=== PATIENT | female | born 1965 | race Caucasian/White ===

== ENCOUNTER → 2019-08-18 10:14 | Outpatient (BNVA) | payer OTHER, SELFPAY | PROVIDERS: Family Provider Family Medicine; PCP Family Medicine; Visit Provider Family Medicine | DX: I10 Essential (primary) hypertension (principal); M25.50 Pain in unspecified joint; M25.562 Pain in left knee; E89.40 Asymptomatic postprocedural ovarian failure | CPT/HCPCS: 80053; 85651; 86140 ==

== ENCOUNTER → 2019-12-28 09:18 | Outpatient (BNVA) | payer OTHER, SELFPAY | PROVIDERS: Family Provider Family Medicine; PCP Family Medicine; Visit Provider Family Medicine | DX: Z11.59 Encounter for screening for other viral diseases (principal); R68.89 Other general symptoms and signs | CPT/HCPCS: 87400; 87635 ==

== ENCOUNTER 2020-04-26 09:27 | Outpatient (CLI) | payer OTHER, SELFPAY ==
--- NOTE | 2020-04-26 10:00 | MM_ITS ---
WS: [id number] Bilateral screening digital mammogram, 04/26/2020 Clinical Data: screening for breast cancer Comparison: 01/02/2018, 05/13/2016, 03/17/2015, 12/31/2013, 08/18/2012, 12/07/2010, 10/13/2009, 06/01/2008, 05/17/2008. Findings: The breast parenchymal pattern shows fat replacement. No spiculated masses or clustered calcification s are seen. There are no secondary signs of carcinoma. There is a mole marker on the right breast. MM/[id number] Impression: 1. Negative bilateral mammogram unchanged. 2. Recommend annual screening mammograms. BIRADS: 1-Negative FOLLOW UP: 1 Year Follow-up The CAD decoration checker was used.
== END 2020-04-26 09:28 | disposition home or self-care (01) ==
LOC: RADSHAW 09:29
PROVIDERS: PCP Family Medicine; Visit Provider Family Medicine
DX: Z12.31 Encounter for screening mammogram for malignant neoplasm of breast (principal)
CPT/HCPCS: 77067

== ENCOUNTER → 2020-06-04 10:20 | Outpatient (BNVA) | payer OTHER, SELFPAY | PROVIDERS: PCP Family Medicine; Visit Provider Nurse Practitioner Family | DX: Z20.828 Contact with and (suspected) exposure to other viral communicable diseases (principal); J40 Bronchitis, not specified as acute or chronic; J11.1 Influenza due to unidentified influenza virus with other respiratory manifestations | CPT/HCPCS: 87635 ==

== ENCOUNTER 2022-01-21 07:40 | Outpatient (CLI) | payer OTHER, SELFPAY ==
--- NOTE | 2022-01-21 07:56 | MM_ITS ---
WS: [id number] SCREENING DIGITAL BREAST TOMOSYNTHESIS MAMMOGRAM WITH CAD HISTORY: Z12.39 - Encounter for other screening for malignant neoplasm... COMPARISON: 04/26/2020 and 01/02/2018 Bilateral CC and MLO with tomosynthesis views submitted. Synthetic mammography reviewed. Computer aid ed detection analyzed. Breast composition: There are scattered areas of fibroglandular density. No suspicious masses, microc alcifications or architectural distortion. MM/[id number] IMPRESSION: BI-RADS: 1-Negative FOLLOW UP: 1 Year Follow-up
== END 2022-01-21 07:41 | disposition home or self-care (01) ==
PROVIDERS: PCP Family Medicine; Visit Provider Family Medicine
DX: Z12.31 Encounter for screening mammogram for malignant neoplasm of breast (principal)
CPT/HCPCS: 77063; 77067

== ENCOUNTER → 2022-07-01 14:44 | Outpatient (BNVA) | payer OTHER, SELFPAY | PROVIDERS: PCP Family Medicine; Visit Provider Family Medicine | DX: M25.541 Pain in joints of right hand (principal) | CPT/HCPCS: 73130 ==

== ENCOUNTER → 2022-09-18 09:20 | Outpatient (BNVA) | payer OTHER, SELFPAY | PROVIDERS: PCP Family Medicine; Visit Provider Family Medicine | DX: I10 Essential (primary) hypertension (principal); G47.01 Insomnia due to medical condition; R68.89 Other general symptoms and signs; J45.901 Unspecified asthma with (acute) exacerbation; R53.83 Other fatigue | CPT/HCPCS: 80053; 82607; 84443; 85025; 87400; 87426 ==

== ENCOUNTER 2023-02-14 10:19 | Outpatient (CLI) | payer OTHER, SELFPAY ==
--- NOTE | 2023-02-14 10:35 | MM_ITS ---
WS: [id number] BILATERAL SCREENING DIGITAL TOMOSYNTHESIS MAMMOGRAM WITH CAD HISTORY: Z12.39 - Encounter for other screening for malignant neop... COMPARISON: 01/21/2022, 05/26/2000 Bilateral CC and MLO views with tomosynthesis and synthetic mammography submitted. Computer aided det ection analyzed. Breast composition: There are scattered areas of fibroglandular density. No suspicious masses, microc alcifications or architectural distortion. IMPRESSION: MM/[id number] BI-RADS: 1-Negative FOLLOW UP: 1 Year Follow-up
== END 2023-02-14 10:20 | disposition home or self-care (01) ==
LOC: RAD 10:25 → MOBLMAM 10:34
PROVIDERS: PCP Family Medicine; Visit Provider Family Medicine
DX: Z12.31 Encounter for screening mammogram for malignant neoplasm of breast (principal)
CPT/HCPCS: 77063; 77067

== ENCOUNTER → 2023-10-24 09:51 | Outpatient (BNVA) | payer OTHER, SELFPAY | PROVIDERS: PCP Family Medicine; Visit Provider Physician Assistant | DX: M65.331 Trigger finger, right middle finger (principal) | CPT/HCPCS: 73130 ==

== ENCOUNTER 2023-11-26 05:28 | Day surgery (SDC) | payer OTHER, SELFPAY ==
[2023-11-26] VITALS (7 sets, daily range): BP systolic 99–161; BP diastolic 67–102; PULSE 54–66; RESP 10–17; TEMP 36.2–36.6; O2SAT 92–94; BMI 38.0
[2023-11-26] MEDS: acetaminophen 1,000 MG/100 ML PIGGYBACK 400 MG IV (06:13)
[2023-11-26] MEDS: sodium chloride 0.9% 1,000 ML 30 ML IV (06:13)
[2023-11-26] MEDS: scopolamine 1.5 Patch 1 PATCH TRANSDERMA (06:14)
[2023-11-26] MEDS: ketorolac 30 mg/mL INJ IVP (06:14)
--- NOTE | 2023-11-26 06:47 | P.ANESASSM_ITS ---
Pre-Anesthetic Assessment Height/Weight: Height 1.75 m Weight 117.027 kg Temp Pulse Resp BP Pulse Ox O2 Del Method 97.2 F L 59 L 17 148/102 94 Room Air 11/26/23 06:03 11/26/23 06:03 11/26/23 06:03 11/26/23 06:03 11/26/23 06:03 11/26/23 06:04 Operation Date: 11/26/23 07:00 Proposed Procedures p Trigger Finger Release /Right middle finger trigger release(Right) - Gee Calaveras, DO Familial anesthetic complications: None Was Beta Gautam taken within 24 hours: Yes Was Clonidine taken within 24 hours: N/A Last intake: Intake Last Liquid Date 11/25/23 Last Liquid Time 21:00 Last Solid Date 11/25/23 Last Solid Time 18:30 Social No alcohol and No tobacco Exam alert, oriented x 3, clear to auscultation bilaterally and regular rate & rhythm Airway Mallampati: Class I Dentition: full CV/HEM Hypertension Musc/skel Fibromyalgia Anesthetic Plan ASA status: 2 Anesthesia: MAC Risk of > 500 ml blood loss (7ml/kg in children): No Medications/Allergies Home Medications Medication Instructions Recorded Confirmed Last Taken Type rizatriptan 10 mg disintegrating 10 mg PO Q2H PRN migraine headache 10/17/21 11/25/23 Unknown Rx tablet (Maxalt-ASSISTANT PRESS OPERATOR) #10 tabs losartan 50 mg tablet 50 mg PO DAILY 90 days #90 tabs 03/13/23 11/25/23 11/25/23 Rx metoprolol tartrate 25 mg tablet 37.5 mg (1.5 x 25 mg) PO BID 90 03/13/23 11/26/23 11/26/23 04:00 Rx days #270 tabs conjugated estrogens 0.9 mg tablet 0.9 mg PO DAILY 90 days #90 tabs 09/10/23 11/25/23 11/25/23 Rx (Premarin) celecoxib 200 mg capsule 200 mg PO DAILY 11/25/23 11/25/23 11/20/23 History Allergies Allergy/AdvReac Type Severity Reaction Status Date / Time No Known Allergies Allergy Verified 11/26/23 06:00 Current Medications Generic Name Dose Route Start Last Admin Trade Name Freq PRN Reason Stop Dose Admin Sodium Chloride 1,000 mls @ 30 mls/hr 11/26/23 06:00 11/26/23 06:13 Sodium Chloride 0.9% IV 11/27/23 05:59 30 mls/hr .Q24H RADHA Administration PFSH Anesthesia Medical History Insomnia Surgical menopause on hormone replacement therapy Hypertension Surgical History History of brain surgery x3. For hemifacial spasms History of left knee surgery History of hysterectomy Family History Other Diabetes Hypertension Social History Smoking and tobacco/nicotine status: never used tobacco/nicotine Alcohol intake: current Alcohol intake frequency: holidays/special occasions only Substance/Drug Use: never Do you think of yourself as: Straight/Heterosexual Female Reproductive History Para: 2 Spontaneous abortions: No Data Anesthesia Cardiac Studies: No Data to Display
--- NOTE | 2023-11-26 06:55 | P.HP_ITS ---
Same Day Surgery H&P Indication for Procedure/HPI DATE OF PROCEDURE: November 26, 2023 CHIEF COMPLAINT/INDICATIONFOR SURGICAL PROCEDURE: Right middle finger trigger PREOP DIAGNOSIS: Right middle finger trigger PLANNED PROCEDURE: Operation Date: 11/26/23 07:00 Proposed Procedures p Trigger Finger Release /Right middle finger trigger release(Right) - Gee Leonard DO Medications/Allergies* Home Medications Medication Instructions Recorded Confirmed Type celecoxib 200 mg capsule 200 mg PO DAILY 11/25/23 11/25/23 History Allergies/Adverse Reactions Allergy/AdvReac Type Severity Reaction Status Date / Time No Known Allergies Allergy Verified 11/26/23 06:00 Current Medications: Generic Name Dose Route Start Last Admin Trade Name Freq PRN Reason Stop Dose Admin Sodium Chloride 1,000 mls @ 30 mls/hr 11/26/23 06:00 11/26/23 06:13 Sodium Chloride 0.9% IV 11/27/23 05:59 30 mls/hr .Q24H RADHA Administration Pertinent History/Comorbid Conditions* Medical History (Updated 10/24/23 @ 10:43 by KELLE Almonte) Insomnia Surgical menopause on hormone replacement therapy Hypertension Surgical History (Updated 08/18/19 @ 09:16 by Renae Ramirez MD) History of brain surgery x3. For hemifacial spasms History of left knee surgery History of hysterectomy Family History (Updated 07/07/19 @ 11:29 by Hallie Lee LPN) Diabetes Hypertension Social History Smoking and tobacco/nicotine status: never used tobacco/nicotine Alcohol intake: current Alcohol intake frequency: holidays/special occasions only Substance/Drug Use: never Do you think of yourself as: Straight/Heterosexual Pertinent Exam Findings alert, oriented x 3, operative site marked and procedure specific exam findings Please refer to detailed orthopedic examination on 10/29/2023: Right hand-full range of motion of the wrist and fingers. Fingers are warm and well-perfused. Patient does have tenderness at A1 garima of middle finger. She has mechanical locking and catching of her finger as well with range of motion. Recommendations Surgery/Procedure today Other Plans: Proceed to the OR today for right middle finger trigger release. Patient understands ends and outs procedure and postoperative course understands the risk benefits complication alternatives of surgery and through shared decision- making elects proceed with surgical intervention. All questions answered. Coding Level of Care Code Acute Code for Chg Fwd
[2023-11-26] MEDS: ceFAZolin 2,000 MG in sodium chloride 0.9% (plus) 50 ML 100 MG IV (06:58)
[2023-11-26] MEDS: BUPivacaine 0.5% INJ 10 mL INJECTION (07:22)
[2023-11-26] MEDS: ROPivacaine 0.5% SDV 30 mL 150 MG INJECTION (07:22)
--- NOTE | 2023-11-26 07:42 | PM.OP ---
Operative Report Date of procedure: November 26, 2023 Surgeon: Gee Leonard DO Manager Organizational: Aki Leonard PA-C: PA was necessary for assistance in this case with hand positioning to execute the procedure, retraction and protection of neurovascular structures as well as to assist with wound closure and dressing application. Procedure: Preoperative diagnosis: Right middle finger trigger post-op diagnosis: Same Procedure done: Right middle finger?trigger?release Surgeon: Gee Leonard DO Estimated blood loss: 2cc Tourniquet time 7mins Complications: None Condition: stable Disposition: same day Brief History: Patient's been seen and worked up in the outpatient setting and findings consistent with preoperative diagnosis of right middle finger?trigger.? Patient has failed conservative treatment.? Continues to have mechanical locking and catching.? Severe pain as well.? We talked about treatment options nonoperative versus operative intervention.? ?Patient understands the risk benefits complication alternatives of surgical nonsurgical treatment options.? Understanding his risks with surgery he elects proceed with surgical intervention.? Consent obtained in the office.? Here today to proceed with surgical intervention.? All questions answered. Procedure: Patient was seen and evaluated in the preoperative holding area.? Consent was?reviewed and signed with patient.? Seen evaluated by Anesthesia Department.? Once cleared for surgery was brought back to the operative suite.? Placed in supine position on the OR table all bony prominences well-padded patient properly secured to the bed.? Patient's right arm was then placed to the armboard.? A nonsterile tourniquet applied to the right upper arm.? Patient's right upper extremity was then prepped and draped in standard orthopedic fashion.? Final timeout performed.? Patient?received appropriate preoperative antibiotics. Esmarch tourniquet was used exsanguinate the right upper extremity tourniquet insufflated to 250 mmHg. Under sterile aseptic technique local digital block was performed to the right middle finger.? Once appropriately anesthetized a standard oblique incision was made centering over the A1 garima following patient's flexor crease.? Sharp scalpel incision was made only through skin and then switched to Littler dissection scissors and spread longitudinally directly over the flexor tendon sheath.? I then mobilized both radially and ulnarly and Kasdan?retractors were used and placed by my assistant infant toddler teacher to protect neurovascular bundle.? Next I visualized the A1 garima and this was incised with a scalpel.? I then switched to dissection scissors and?released the A1 garima both proximally as well as distally to its entirety.? Significant tendon sheath fluid was noted consistent with inflammation.? Mild fraying of the flexor tendons noted but no tear.? At this point I utilized a rag nail and pulled the tendons FDS and FDP out of the incision and no?triggering was noted.? I then had anesthesia wake up the patient and patient was able to actively flex and extend with no?triggering.? This point thorough irrigation was performed.? Tourniquet deflated hemostasis satisfactory with bipolar.? I then subsequently closed the incision with interrupted nylon suture.? Xeroform 4 x 4's, Kerlix and an Roque wrap was applied for a bulky soft dressing.? Patient was then subsequently awakened from anesthesia and taken to PACU in stable condition tolerated procedure without issues. Disposition: Patient taken back in stable condition?recovering well.? Patient will?receive appropriate discharge instruction as well as pain medication postoperatively.? Patient to follow-up with me in the office in 2 weeks for?repeat evaluation and incision check.? Patient understands that any questions or concerns and contact the office.? All questions answered.
--- NOTE | 2023-11-26 07:53 | P.BOP_ITS ---
Date of Procedure: [November 26, 2023] Surgeon: [Dr. Aisha DO] Child Care Attendant(s): [Aki Leonard PA-C] Procedure(s) performed: [Right middle trigger finger release] Findings of the procedure(s): [Right middle trigger finger] Estimated blood loss: [2 mL] Specimen(s) removed: [n/a] Post-operative diagnosis: [Right middle trigger finger]
--- NOTE | 2023-11-26 07:59 | PM.PACU ---
PACU note Narrative: Patient is a 58-year-old female that just underwent a right middle finger trigger release. Patient transferred to PACU in stable condition. Pain is well controlled. Dressing on hand is dry and in place. Patient's fingers are warm and well-perfused. Patient can wiggle fingers. normal cap refill under 2 seconds. Patient has normal elbow range of motion. Unable to assess sensation due to residual localized anesthetic. Exam: awake Disposition: discharged
--- NOTE | 2023-11-26 08:40 | ANE.PACU2 ---
Inpatient post-anesthesia follow up: Airway intact: Yes Vital signs: Temperature 97.4 F Pulse Rate 54 Respiratory Rate 17 Blood Pressure 122/71 Pulse Oximetry 94 Oxygen Delivery Me thod Room Air Oxygen Flow Rate Fraction of Inspir ed Oxygen Hydration adequate: Yes Nausea and vomiting: No Pain level: 1 Mental status: Baseline
== END 2023-11-26 08:44 | disposition home or self-care (01) ==
PROVIDERS: PCP Family Medicine; Visit Provider Student in an Organized Health Care Education/Training Program
PROC: (CPT 26055; principal; 2023-11-26 07:00)
DX: M65.331 Trigger finger, right middle finger (principal); I10 Essential (primary) hypertension; M79.7 Fibromyalgia
CPT/HCPCS: 26055; J0131; J0690; J1885; J2704; J2795; J3490; J7030

== ENCOUNTER 2024-04-29 09:55 | Outpatient (CLI) | payer OTHER, SELFPAY ==
--- NOTE | 2024-04-29 10:00 | MM_ITS ---
WS: [id number] BILATERAL SCREENING DIGITAL TOMOSYNTHESIS MAMMOGRAM WITH CAD HISTORY: Z12.39 - Encounter for other screening for malignant neop... COMPARISON: 02/14/2023, 01/21/2022 Bilateral CC and MLO views with tomosynthesis and synthetic mammography submitted. Computer aided det ection analyzed. Breast composition: The breasts are almost entirely fatty. No suspicious masses, microcalcifications or architectural distortion. MM/MM scr BI tomosynthesis [id number] IMPRESSION: BI-RADS: 1 - Negative. FOLLOW UP: 1 Year Follow-up
== END 2024-04-29 09:56 | disposition home or self-care (01) ==
LOC: MOBLMAM 09:56
PROVIDERS: PCP Family Medicine; Visit Provider Family Medicine
DX: Z12.31 Encounter for screening mammogram for malignant neoplasm of breast (principal); R92.313 Mammographic fatty tissue density, bilateral breasts
CPT/HCPCS: 77063; 77067

== ENCOUNTER → 2024-06-02 11:49 | Outpatient (BNVA) | payer SELFPAY | PROVIDERS: PCP Family Medicine; Visit Provider Family Medicine | DX: S92.424A Nondisplaced fracture of distal phalanx of right great toe, initial encounter for closed fracture (principal); X58.XXXA Exposure to other specified factors, initial encounter | CPT/HCPCS: 73630 ==

== ENCOUNTER → 2024-06-24 10:14 | Outpatient (BNVA) | payer OTHER, SELFPAY | PROVIDERS: PCP Family Medicine; Referring Provider Family Medicine; Visit Provider Family Medicine | DX: S92.424A Nondisplaced fracture of distal phalanx of right great toe, initial encounter for closed fracture (principal); X58.XXXA Exposure to other specified factors, initial encounter | CPT/HCPCS: 73630 ==

== ENCOUNTER → 2024-12-08 08:42 | Outpatient (BNVA) | payer OTHER, SELFPAY | PROVIDERS: PCP Family Medicine; Visit Provider Nurse Practitioner | DX: R50.9 Fever, unspecified (principal) | CPT/HCPCS: 80053; 85025 ==

== ENCOUNTER 2025-05-26 11:17 | Outpatient (CLI) | payer OTHER, SELFPAY ==
--- NOTE | 2025-05-26 11:20 | MM_ITS ---
WS: [id number] BILATERAL SCREENING DIGITAL TOMOSYNTHESIS MAMMOGRAM WITH CAD HISTORY: SCREENING COMPARISON: 04/29/2024, 02/14/2023 Bilateral CC and MLO views with tomosynthesis and synthetic mammography submitted. Computer aided detection analyzed. Breast composition: The breasts are almost entirely fatty. No suspicious masses, microcalcifications or architectural distortion. MM/MM scr BI tomosynthesis [id number] IMPRESSION: BI-RADS: 1 - Negative. FOLLOW UP: 1 Year Follow-up
== END 2025-05-26 11:18 | disposition home or self-care (01) ==
LOC: MOBLMAM 11:20
PROVIDERS: PCP Family Medicine; Visit Provider Family Medicine
DX: Z12.31 Encounter for screening mammogram for malignant neoplasm of breast (principal); R92.313 Mammographic fatty tissue density, bilateral breasts
CPT/HCPCS: 77063; 77067

== ENCOUNTER → 2025-06-20 14:52 | Outpatient (BNVA) | payer OTHER, SELFPAY | PROVIDERS: PCP Family Medicine; Visit Provider Specialist | DX: G56.01 Carpal tunnel syndrome, right upper limb (principal) | CPT/HCPCS: 73110 ==

== ENCOUNTER → 2025-06-21 09:29 | Outpatient (BNVA) | payer OTHER, SELFPAY | PROVIDERS: PCP Family Medicine; Referring Provider Specialist; Visit Provider Specialist | DX: Z01.818 Encounter for other preprocedural examination (principal) | CPT/HCPCS: 80053; 81000; 85025 ==